=== PATIENT | female | born 1970 ===

== ENCOUNTER 2016-10-29 12:48 | Emergency (ER) | payer OTHER ==
[2016-10-29 13:01] VITALS: BP 187/90; PULSE 91; RESP 16; TEMP 98.7; O2SAT 99
--- NOTE | 2016-10-29 13:12 | ED PDOC ---
HPI: General Adult Time Seen by Provider: 10/29/16 13:06 Chief Complaint (Nursing): ENT Problem Chief Complaint (Provider): nasal pain History Per: Patient, Other (Patient arrives with family member at bedside who is translating in Nauruan for patient, as per patient request) History/Exam Limitations: no limitations Onset/Duration Of Symptoms: Days (3-4) Current Symptoms Are (Timing): Still Present Additional Complaint(s): Patient is a 46 y/o female with no significant medical history presenting to the emergency department for a burning pain that radiates from her nose to her upper cheeks ongoing for 3-4 days with associated headache. She reports seeing ENT specialist two days ago and was told that she had allergies and a sinus infection. She was given rx for amoxicillin and flonase but came to ED today as her pain is worse. Motrin taken earlier has not helped the pain. Patient denies shortness of breath, epistaxis, coughing, dizzines or vision changes. PCP: none ENT: Dr. Cartagena Past Medical History Reviewed: Historical Data, Nursing Documentation, Vital Signs Vital Signs: Last Vital Signs Temp 98.7 F 10/29/16 12:58 Pulse 91 H 10/29/16 12:58 Resp 16 10/29/16 12:58 BP 187/90 H 10/29/16 12:58 Pulse Ox 99 10/29/16 13:57 - Medical History PMH: No Chronic Diseases - Surgical History Surgical History: Cholecystectomy, - Family History Family History: States: No Known Family Hx - Living Arrangements Living Arrangements: With Family - Social History Current smoker - smoking cessation education provided: No Ex-Smoker (has not smoked in the last 12 months): No Alcohol: None Drugs: Denies - Home Medications Home Medications: Ambulatory Orders Medication Instructions Recorded Loratadine [Claritin] 10 mg PO DAILY #30 tab 10/29/16 Sodium Chloride [[place] Saline] 50 ml NS DAILY #1 bottle 10/29/16 Sulfamethoxazole/Trimethoprim 1 tab PO BID #14 tab 10/29/16 [Bactrim DS 800 mg-160 mg] traMADol [Ultram] 50 mg PO TID PRN #15 tab 10/29/16 - Allergies Allergies/Adverse Reactions: Allergies Allergy/AdvReac Type Severity Reaction Status Date / Time No Known Allergies Allergy Verified 10/29/16 12:57 Review of Systems ROS Statement: Except As Marked, All Systems Reviewed And Found Negative ENT: Positive for: Nose Pain (radiating to upper cheeks), Other (denies epistaxis). Negative for: Throat Pain, Throat Swelling Respiratory: Negative for: Cough, Shortness of Breath, SOB with Exertion Gastrointestinal: Negative for: Nausea, Vomiting Neurological: Positive for: Headache. Negative for: Dizziness Physical Exam - Reviewed Nursing Documentation Reviewed: Yes Vital Signs Reviewed: Yes - Physical Exam Appears: Positive for: Non-toxic, No Acute Distress Head Exam: Positive for: ATRAUMATIC, NORMAL INSPECTION, NORMOCEPHALIC Skin: Positive for: Normal Color, Warm, Dry. Negative for: Rash Eye Exam: Positive for: Normal appearance ENT: Positive for: TM Is/Are (normal bilaterally), Other (erythema, inflammation , and mucus noted to intranasal mucous membranes bilaterally with tenderness on palpation overlying maxillary sinuses bilaterally, no facial swelling or cellulitis). Negative for: Pharyngeal Erythema Cardiovascular/Chest: Positive for: Regular Rate, Rhythm Respiratory: Positive for: Normal Breath Sounds. Negative for: Accessory Muscle Use, Respiratory Distress Extremity: Positive for: Normal ROM Neurologic/Psych: Positive for: Alert, Oriented (x3) - ECG O2 Sat by Pulse Oximetry: 99 (RA) Pulse Ox Interpretation: Normal Medical Decision Making Medical Decision Making: Time: 13:20 Initial impression: Rhinitis and sinusitis Initial plan: Tylenol 1 gram PO Motrin 600 mg PO Ultram 50 mg PO Patient states she feels much better after medications given in ED. 13:30 Upon provider reevaluation patient is medically stable, and requires no further treatment in the ED at this time. Patient was instructed to stop current meds and will be discharged with Rx for Bactrim, Claritin, tramadol and nasal saline spray. Counseling was provided and all questions were answered regarding diagnosis and need for follow up with ENT specialist. There is agreement to discharge plan. Return if symptoms persist or worsen. Clinical impression: Rhinitis and sinusitis Scribe Attestation: Documented by Becky Hickman, acting as a scribe for BRAN Huynh. Provider Scribe Attestation: All medical record entries made by the Scribe were at my direction and personally dictated by me. I have reviewed the chart and agree that the record accurately reflects my personal performance of the history, physical exam, medical decision making, and the department course for this patient. I have also personally directed, reviewed, and agree with the discharge instructions and disposition. Disposition - Clinical Impression Clinical Impression: Rhinitis, Sinusitis - Patient ED Disposition Is Patient to be Admitted: No Doctor Will See Patient In The: Office Counseled Patient/Family Regarding: Diagnosis, Need For Followup, Rx Given - Disposition Referrals: Obi De La Cruz MD [Staff Provider] - Disposition: Routine/Home Disposition Time: 14:16 Condition: STABLE Additional Instructions: Stop taking current meds and take rx meds as directed. Follow up in 1-2 days with ear, nose and throat specialist. Prescriptions: Loratadine [Claritin] 10 mg PO DAILY #30 tab Sodium Chloride [[place] Saline] 50 ml NS DAILY #1 bottle Sulfamethoxazole/Trimethoprim [Bactrim DS 800 mg-160 mg] 1 tab PO BID #14 tab traMADol [Ultram] 50 mg PO TID PRN #15 tab PRN Reason: Pain, Moderate (4-7) Instructions: Rhinosinusitis (ED) Forms: [employer] (Nauruan) Print Language: LIBYAN
== END 2016-10-29 14:44 | disposition home or self-care (01) ==
LOC: H.ER 12:48
DX: J31.0 Chronic rhinitis (principal)

== ENCOUNTER 2017-03-15 08:27 | Emergency (ER) | payer OTHER ==
[2017-03-15 08:31] VITALS: BMI 28.9
[2017-03-15 09:32] LABS: BASO % 0.2 % (0.0-2.0); EOS % 0.3 % (0.0-4.0); HEMOGLOBIN 13.8 g/dL (12.0-16.0); LYMPH # 1.6 K/uL (1.0-4.3); LYMPH % 15.8 % (20.0-40.0); MEAN CELL VOLUME 88.4 fl (81.0-99.0); MEAN CORPUSCULAR HEMOGLOBIN 30.9 pg (27.0-31.0); MONO # 0.8 K/uL (0.0-0.8); MONO % 8.4 % (0.0-10.0); NEUT # 7.6 K/uL (1.8-7.0); NEUT % 75.3 % (50.0-75.0); NRBC % 0.1 % (0.0-0.0); RBC 4.45 Mil/uL (3.80-5.20); RED CELL DISTRIBUTION WIDTH 11.9 % (11.5-14.5); WHITE BLOOD COUNT 10.1 K/uL (4.8-10.8)
[2017-03-15 09:37] LABS: ALB/GLOB RATIO 1.2 (1.0-2.1); ALBUMIN 4.2 g/dL (3.5-5.0); ALT/SGPT 99 U/L (9-52); AST/SGOT 62 U/L (14-36); BLOOD UREA NITROGEN 10 mg/dl (7-17); CALCIUM 9.1 mg/dL (8.4-10.2); GFR AFRICAN-AMERICAN > 60; GFR NON-AFRICAN AMERICAN > 60
[2017-03-15] MEDS ORDERED: Potassium Chloride 20 mEq ER Tab PO STA (09:43)
[2017-03-15] MEDS ORDERED: Iohexol 300 100 ML IJ ONE (09:57)
[2017-03-15] MEDS ORDERED: Sodium Chloride 0.9% 50 ML IV ONE (09:58)
--- NOTE | 2017-03-15 10:48 | ED PDOC ---
HPI: General Adult Time Seen by Provider: 03/15/17 08:48 Chief Complaint (Nursing): Dental Pain History Per: Patient History/Exam Limitations: no limitations Onset/Duration Of Symptoms: Days (x 4) Current Symptoms Are (Timing): Still Present Additional Complaint(s): Jyoti is a 46 year old female who presents to the emergency department complaining of lateral jaw and left throat pain since last Wednesday (4 days ago). Patient states she had pharyngitis months ago, but does not believe it is the same. States she also has rash all over her body, but denies itchiness. PMD: Provider TBD Past Medical History Reviewed: Historical Data, Nursing Documentation, Vital Signs Vital Signs: Last Vital Signs Temp 97.6 F 03/15/17 13:08 Pulse 78 03/15/17 13:08 Resp 18 03/15/17 13:08 BP 128/78 03/15/17 13:08 Pulse Ox 98 03/15/17 13:08 - Medical History Other PMH: pharyngitis - Surgical History Surgical History: Cholecystectomy, - Family History Family History: States: Unknown Family Hx - Social History Current smoker - smoking cessation education provided: No Alcohol: None Drugs: Denies - Home Medications Home Medications: Ambulatory Orders Medication Instructions Recorded Loratadine [Claritin] 10 mg PO DAILY #30 tab 10/29/16 Sodium Chloride [[place] Saline] 50 ml NS DAILY #1 bottle 10/29/16 Sulfamethoxazole/Trimethoprim 1 tab PO BID #14 tab 10/29/16 [Bactrim DS 800 mg-160 mg] traMADol [Ultram] 50 mg PO TID PRN #15 tab 10/29/16 Amoxicillin/Clavulanate [Augmentin 1 tab PO BID #20 tab 03/15/17 875 MG-125 MG] Naproxen [Naprosyn] 500 mg PO BID PRN #15 tablet 03/15/17 - Allergies Allergies/Adverse Reactions: Allergies Allergy/AdvReac Type Severity Reaction Status Date / Time No Known Allergies Allergy Verified 03/15/17 08:47 Review of Systems ROS Statement: Except As Marked, All Systems Reviewed And Found Negative ENT: Positive for: Throat Pain, Other (Jaw Pain) Physical Exam - Reviewed Nursing Documentation Reviewed: Yes Vital Signs Reviewed: Yes - Physical Exam Appears: Positive for: Non-toxic Skin: Negative for: Normal Color ((+): Generalized erythematous macular areas with no indurations, lesions or blanching) ENT: Positive for: Normal ENT Inspection, Pharynx Is (Clear), Other (normal dentitionl; tenderness at angle and superiorly mandible) - Laboratory Results Result Diagrams: 03/15/17 09:20 03/15/17 09:20 Urine POC: Negative - ECG O2 Sat by Pulse Oximetry: 99 (RA) Pulse Ox Interpretation: Normal Medical Decision Making Medical Decision Making: Time: 08:56 Plan: - CT Neck Soft Tissue with Contrast - CMP - ED Urine - CBC - Toradol 15 mg IV STAT Time: 09:43 - K-Dur 20 mEq ER. Tab Accession No. : [id number] Patient Name / ID : KYRA CARRINGTON / [id number] Exam Date : 03/15/2017 09:49:02 ( Approved ) Study Comment : Sex / Age : F / 46Y Creator : Nina Jordan MD Dictator : Nina Jordan MD Editor Index : Hall Manager : Nina Jordan MD Approver2 : Report Date : 03/15/2017 11:40:05 My Comment : PROCEDURE: CT MAXILLOFACIAL BONES WITH CONTRAST HISTORY: Mass inferior to L ear COMPARISON: None. TECHNIQUE: Contiguous axial CT images of the maxillofacial bones were obtained following administration of IV contrast. Coronal and sagittal reformats were generated. Intravenous contrast Dose: 95 cc of Omnipaque 300 Radiation dose: Total exam DLP = 749.84 mGy-cm. This CT exam was performed using one or more of the following dose reduction techniques: Automated exposure control, adjustment of the mA and/or kV according to patient size, and/or use of iterative reconstruction technique. FINDINGS: NASAL BONES: Unremarkable. ORBITS: Unremarkable. PARANASAL SINUSES/ MASTOIDS: Mild mucosal thickening noted at the posterior maxillary sinus and right sphenoid sinus. MAXILLA: Unremarkable. MANDIBLE/ TEMPOROMANDIBULAR JOINTS: Unremarkable. SKULL BASE: Unremarkable. TEMPORAL BONES: Middle ears and mastoid grossly unremarkable. OTHER FINDINGS: That left parotid gland is slightly prominent in size. No evidence of discrete mass lesion. Slightly prominent upper neck lymph node without evidence of significant lymphadenopathy. IMPRESSION: No evidence of mass lesion in the neck and facial region. Slightly prominent left parotid gland without evidence of adjacent inflammatory changes or lymphadenopathy. Scribe Attestation: Documented by Manav Mays, acting as a scribe for Cierra Wagoner MD Provider Scribe Attestation: All medical record entries made by the Scribe were at my direction and personally dictated by me. I have reviewed the chart and agree that the record accurately reflects my personal performance of the history, physical exam, medical decision making, and the department course for this patient. I have also personally directed, reviewed, and agree with the discharge instructions and disposition. Disposition - Clinical Impression Clinical Impression: Parotitis - Disposition Disposition: Routine/Home Disposition Time: 12:50 Condition: STABLE Additional Instructions: FOLLOW-UP WITH PMD FOR POSSIBLE REFERRAL TO [facility]/ENT. Prescriptions: Amoxicillin/Clavulanate [Augmentin 875 MG-125 MG] 1 tab PO BID #20 tab Naproxen [Naprosyn] 500 mg PO BID PRN #15 tablet PRN Reason: Pain, Moderate (4-7) Instructions: Sialoadenitis (ED) Forms: [employer] (Khmer) Print Language: FIJIAN
--- NOTE | 2017-03-15 11:41 | CT ---
PROCEDURE: CT MAXILLOFACIAL BONES WITH CONTRAST HISTORY: Mass inferior to L ear COMPARISON: None. TECHNIQUE: Contiguous axial CT images of the maxillofacial bones were obtained following administration of IV contrast. Coronal and sagittal reformats were generated. Intravenous contrast Dose: 95 cc of Omnipaque 300 Radiation dose: Total exam DLP = 749.84 mGy-cm. This CT exam was performed using one or more of the following dose reduction techniques: Automated exposure control, adjustment of the mA and/or kV according to patient size, and/or use of iterative reconstruction technique. FINDINGS: NASAL BONES: Unremarkable. ORBITS: Unremarkable. PARANASAL SINUSES/ MASTOIDS: Mild mucosal thickening noted at the posterior maxillary sinus and right sphenoid sinus. MAXILLA: Unremarkable. MANDIBLE/ TEMPOROMANDIBULAR JOINTS: Unremarkable. SKULL BASE: Unremarkable. TEMPORAL BONES: Middle ears and mastoid grossly unremarkable. OTHER FINDINGS: That left parotid gland is slightly prominent in size. No evidence of discrete mass lesion. Slightly prominent upper neck lymph node without evidence of significant lymphadenopathy. IMPRESSION: No evidence of mass lesion in the neck and facial region. Slightly prominent left parotid gland without evidence of adjacent inflammatory changes or lymphadenopathy.
[2017-03-15 11:56] VITALS: RESP 18
[2017-03-15 13:09] VITALS: BP 128/78; PULSE 78; TEMP 97.6
[2017-03-19 17:44] VITALS: O2SAT 99
== END 2017-03-15 13:09 | disposition home or self-care (01) ==
LOC: H.ER 08:27
DX: K11.20 Sialoadenitis, unspecified (principal)
CPT/HCPCS: 70488; 80053; 81025; 85025; 96374; 99282; J1885; Q9967

== ENCOUNTER 2017-07-14 12:27 | Emergency (ER) | payer OTHER ==
[2017-07-14 12:27] VITALS: BMI 28.9
--- NOTE | 2017-07-14 12:40 | ED PDOC ---
Lower Extremity Pain/Injury Time Seen by Provider: 07/14/17 12:40 Chief Complaint (Nursing): Lower Extremity Problem/Injury Chief Complaint (Provider): Left knee pain History Per: Patient History/Exam Limitations: no limitations Onset/Duration Of Symptoms: Days Current Symptoms Are (Timing): Still Present Additional Complaint(s): 47 year old female with chronic bilateral knee pain presents to the emergency department with a complaint of worsening left knee pain x1 week. Denies numbness , decreased range of motion, trauma, injury, fever, or any other current joint pain. Of note, patient has not taken any medication for the relief of pain today, . PMD: Dr. Judith Juarez MD Past Medical History Reviewed: Historical Data, Nursing Documentation, Vital Signs Vital Signs: Last Vital Signs Temp 97.8 F 07/14/17 12:30 Pulse 73 07/14/17 12:30 Resp 16 07/14/17 12:30 BP 165/99 H 07/14/17 12:30 Pulse Ox 97 07/14/17 12:30 - Medical History PMH: Chronic Pain (to both knees) - Surgical History Surgical History: Cholecystectomy, - Family History Family History: States: Unknown Family Hx - Social History Current smoker - smoking cessation education provided: No Alcohol: None Drugs: Denies - Home Medications Home Medications: Ambulatory Orders Medication Instructions Recorded Loratadine [Claritin] 10 mg PO DAILY #30 tab 10/29/16 Sodium Chloride [[place] Saline] 50 ml NS DAILY #1 bottle 10/29/16 Sulfamethoxazole/Trimethoprim 1 tab PO BID #14 tab 10/29/16 [Bactrim DS 800 mg-160 mg] traMADol [Ultram] 50 mg PO TID PRN #15 tab 10/29/16 Amoxicillin/Clavulanate [Augmentin 1 tab PO BID #20 tab 03/15/17 875 MG-125 MG] Naproxen [Naprosyn] 500 mg PO BID PRN #15 tablet 03/15/17 Meloxicam [Mobic] 15 mg PO DAILY PRN #30 tab 07/14/17 - Allergies Allergies/Adverse Reactions: Allergies Allergy/AdvReac Type Severity Reaction Status Date / Time No Known Allergies Allergy Verified 07/14/17 12:30 Review of Systems ROS Statement: Except As Marked, All Systems Reviewed And Found Negative (As per HPI, otherwise negative) Constitutional: Negative for: Fever, Other (decreased ROM, trauma, injury, or any other current joint pain) Musculoskeletal: Positive for: Other (Left knee pain) Neurological: Negative for: Numbness Physical Exam - Reviewed Nursing Documentation Reviewed: Yes Vital Signs Reviewed: Yes - Physical Exam Comments: GENERAL APPEARANCE: Patient is awake, alert, oriented x 3, in no acute distress. Patient ambulatory in the ER. SKIN: Warm, dry; (-) cyanosis. LOWER EXTRM: (+) Full ROM (+) point tenderness to the lateral aspect of the left knee with small palpable joint effusion. (-) Laxity on varus and valgus test. (-) No laxity on anterior and posterior drawer test. (-) Swelling, (-) deformity, (-) distal neurovascular deficit. NEURO AND PSYCH: Mental status as above. - ECG O2 Sat by Pulse Oximetry: 97 (RA) Pulse Ox Interpretation: Normal Medical Decision Making Medical Decision Making: Time: 1301 Initial impression: Left knee pain in setting of known chronic knee pain Initial plan: Toradol 60 mg IM Left knee x-ray Reevaluation XR L knee: no fracture, no dislocation, as read by BRAN Patient advised that official radiology read of XR is still pending and will call the patient if there is any discrepancy within 24 hours. Time: 1400 XR results d/w the patient. Advised to rest, ice and elevate. Advised to follow up with ortho referral in 1-2 days without fail. Advised to take medication as prescribed. Return to the emergency room at any time for any new or worsening symptoms. Patient states he fully agrees with and understands discharge instructions. States that he agrees with the plan and disposition. Verbalized and repeated discharge instructions and plan. I have given the patient opportunity to ask any additional questions. Patient is medically clear for discharge and given Rx for Mobic 15 mg. Advised to follow up with Dr. Lilian Harrington MD and primary care doctor for further evaluation. Clinical Impression: Left knee pain Scribe Attestation: Documented by Gay Lr, acting as a scribe for Jennifer Orellana PA-C. Provider Scribe Attestation: All medical record entries made by the Scribe were at my direction and personally dictated by me. I have reviewed the chart and agree that the record accurately reflects my personal performance of the history, physical exam, medical decision making, and the department course for this patient. I have also personally directed, reviewed, and agree with the discharge instructions and disposition. Disposition - Clinical Impression Clinical Impression: Knee pain - Patient ED Disposition Is Patient to be Admitted: No Counseled Patient/Family Regarding: Studies Performed, Diagnosis, Need For Followup, Rx Given - Disposition Referrals: Lilian Harrington MD [Staff Provider] - Disposition: Routine/Home Disposition Time: 14:00 Condition: STABLE Additional Instructions: Thank you for letting us take care of you today. You were treated for L knee pain. The emergency medical care you received today was directed at your acute symptoms. If you were prescribed any medication, please fill it and take as directed. It may take several days for your symptoms to resolve. Return to the Emergency Department if your symptoms worsen, do not improve, or if you have any other problems. Please call one of the physicians/clinics you have been referred to that are listed on the Patient Visit Information form that is included in your discharge packet. Bring any paperwork you were given at discharge with you along with any medications you are taking to your follow up visit. Our treatment cannot replace ongoing medical care by a primary care provider (PCP) outside of the emergency department. Thank you for allowing the [facility] team to be part of your care today. If you had an X-Ray : A Radiologist will review the ED reading if any change in treatment is needed we will contact you. Prescriptions: Meloxicam [Mobic] 15 mg PO DAILY PRN #30 tab PRN Reason: Pain, Moderate (4-7) Instructions: Knee Pain Forms: [employer] (Ugandan), [facility] ED School/Work Excuse Print Language: LITHUANIAN - PA / BULK STATION AGENT / Resident Statement MD/DO has reviewed & agrees with the documentation as recorded.
[2017-07-14 14:20] VITALS: BP 140/81; PULSE 70; RESP 18; TEMP 98; O2SAT 99
--- NOTE | 2017-07-14 14:39 | RAD ---
PROCEDURE: Left Knee Radiographs. Scratch HISTORY: Pain. COMPARISON: None. FINDINGS: BONES: Normal. No fracture. JOINTS: Normal. No osteoarthritis. JOINT EFFUSION: None. OTHER FINDINGS: None. IMPRESSION: Normal radiographs of the left knee.
== END 2017-07-14 14:20 | disposition home or self-care (01) ==
LOC: H.ER 12:27
DX: M25.562 Pain in left knee (principal); G89.29 Other chronic pain
CPT/HCPCS: 73560; 96372; 99283; J1885